=== PATIENT | male | born 1990 | race Caucasian/White ===

== ENCOUNTER 2020-02-09 12:10 | Emergency (ER) | payer MEDICAID ==
[~2020-02-09] VITALS: Ht 167.6 cm; Wt 76.2 kg
[2020-02-09 12:12] VITALS: BP 117/72
== END 2020-02-09 12:48 | disposition left against medical advice (07) ==
LOC: ER 12:10
DX: Z53.21 Procedure and treatment not carried out due to patient leaving prior to being seen by health care provider (principal)